=== PATIENT | female | born 1970 | race Caucasian/White ===

== ENCOUNTER → 2020-11-05 | Day surgery (SDC) | payer OTHER ==
[~2020-11-05] VITALS: Ht 162.6 cm; Wt 77.1 kg
[~2020-11-05] MED LIST: GABAPENTIN600 MG PO; PERCOCET 5-3251 EACH PO; TRIMOX250 MG/5 M PO
[2020-11-05 13:13] LABS: HCG (URINE) SCREEN NEGATIVE (NEGATIVE)
[2020-11-05 14:21] LABS: BASOPHIL 0.7 % (0-2); EOSINOPHIL 1.1 % (0-5); HCT 41.2 % (37.0-47.0); HGB 13.9 g/dl (12.5-16.0); LYMPHOCYTE 27.8 % (15-48); MCH 30.5 pg (25.0-31.0); MCHC 33.7 g/dL (32.0-36.0); MCV 90.5 fL (78.0-100.0); MONOCYTE 6.1 % (0-12); MPV 9.8 fL (6.0-9.5); NEUTROPHIL 64.3 % (41-80); NRBC 0; PLT 242 K/uL (150-400); RBC 4.55 M/uL (4.20-5.40); RDW 13.1 % (11.5-14.0); WBC 5.6 K/uL (4.0-10.5)
[2020-11-05 14:47] LABS: BILIRUBIN - TOTAL 0.8 mg/dL (0.2-1.0); BUN/CREAT RATIO (CALC) 10.8 RATIO; CREATININE 0.74 mg/dL (0.51-0.95); GLOBULIN (CALCULATION) 3.6 g/dL; POTASSIUM 3.9 mmol/L (3.5-5.1); TOTAL PROTEIN 7.6 g/dL (6.4-8.2)
== END | disposition home or self-care (01) ==
LOC: FAS 10:30
PROVIDERS: Oral & Maxillofacial Surgery
DX: K04.7 Periapical abscess without sinus (principal); I25.10 Atherosclerotic heart disease of native coronary artery without angina pectoris; I25.2 Old myocardial infarction; M54.9 Dorsalgia, unspecified; G89.29 Other chronic pain; F41.9 Anxiety disorder, unspecified; Z88.6 Allergy status to analgesic agent; Z88.8 Allergy status to other drugs, medicaments and biological substances; F32.9 Major depressive disorder, single episode, unspecified; K21.9 Gastro-esophageal reflux disease without esophagitis; I10 Essential (primary) hypertension
CPT/HCPCS: D7210; 36415; 71045; 80053; 84703; 85025; J1100; J2250; J2405; J2704; J3010; J7120